=== PATIENT | male | born 1965 | race Caucasian/White ===

== ENCOUNTER 2017-11-12 10:46 | Emergency (ER) | payer SELFPAY ==
[~2017-11-12] VITALS: Ht 152.4 cm; Wt 61.4 kg
[2017-11-12 10:47] VITALS: BP 137/81; PULSE 96; RESP 14; TEMP 96.6; O2SAT 96
--- NOTE | 2017-11-12 12:02 | PD ---
HPI Chief Complaint: Skin Problem Time Seen by Provider: 11:56 Travel History International Travel<30 days: Yes Contact w/Intl Traveler<30days: Yes Name of Country Traveled to: [place] Traveled to known affect area: No History of Present Illness HPI 52-year-old male presents to emergency Department with complaint of sores to the ventral aspect of bilateral hands since Sunday. Says he went to [facility] and they told him to "fuck off" and didn't do anything for him. He denies taking any antibiotics. Reports being up-to-date on tetanus vaccination. Unknown bug bites. Denies fever, vomiting. Denies paresthesias or loss of sensation to the affected extremity. Reports decreased range of motion of the right second and third fingers at the MCP joint. Has not taken any medication or tried any treatments to alleviate his symptoms. Symptoms are moderate in severity. No known allergies. Does not have an established primary care provider. Has no other medical complaints. No other modifying factors or associated signs and symptoms. PFSH Social History Tobacco Use: No Allergies-Medications (Allergen,Severity, Reaction): Coded Allergies: No Known Allergies (Unverified , 11/12/17) Reported Meds & Prescriptions Reported Meds & Active Scripts Active Clindamycin (Clindamycin HCl) 150 Mg Cap 450 Mg PO Q6H 10 Days Ibuprofen 800 Mg Tab 800 Mg PO Q6HR PRN Review of Systems Except as stated in HPI: all other systems reviewed are Neg Physical Exam Narrative GENERAL: Well-nourished, well-developed male patient, in no acute distress; afebrile, nontoxic-appearing; nonpleasant and demanding SKIN: 2 lesions noted to the right hand over the first and second metacarpal region near the MCP joints; they appear like infected blister-like lesions; lesions noted to the ventral aspect of the left hand, two small and 1 with some surrounding erythema. No lymphangitis noted bilaterally. Right second and third fingers with limited range of motion at the MCP joints; fingers with edema and with minimal erythema; with warmth to touch; sensory intact. Full range of motion at all finger joints of the left hand. HEAD: Atraumatic. Normocephalic. EYES: Pupils equal and round. No scleral icterus. No injection or drainage. ENT: Mucosa pink and moist. Airway patent. NECK: Trachea midline. CARDIOVASCULAR: Regular rate. RESPIRATORY: No accessory muscle use. GASTROINTESTINAL: Flat. MUSCULOSKELETAL: No obvious deformities. No clubbing. No cyanosis. No edema. NEUROLOGICAL: Awake and alert. Oriented 3. No obvious cranial nerve deficits. Motor grossly within normal limits. Normal speech. PSYCHIATRIC: Appropriate mood and affect; insight and judgment normal. Data Data Last Documented VS Vital Signs Date Time Temp Pulse Resp B/P (MAP) Pulse Ox O2 Delivery O2 Flow Rate FiO2 11/12/17 13:30 16 11/12/17 13:20 11/12/17 10:47 96.6 96 96 Orders Orders Wound Culture And Gram Stain (11/12/17 12:02) Wound Care (11/12/17 12:02) Ibuprofen (Motrin) (11/12/17 12:15) Hand, Complete (Cki4nin) (11/12/17 12:09) Clindamycin Inj (Cleocin Inj) (11/12/17 12:15) Ed Discharge Order (11/12/17 13:14) MDM Medical Decision Making Medical Screen Exam Complete: Yes Emergency Medical Condition: Yes Medical Record Reviewed: Yes Differential Diagnosis Tenosynovitis, septic joint, osteomyelitis, cellulitis, abscess, infected bug bites Narrative Course 52-year-old male with multiple lesions of ventral aspect of bilateral hands. Patient is afebrile and nontoxic-appearing. Denies fever, vomiting. Reports being up-to-date on his tetanus vaccination. No previous antibiotic treatment. Wound culture pending. Right hand x-ray ordered to rule out osteomyelitis. Wound care and ibuprofen ordered. Clindamycin 600 mg IM ordered. 1310: Right hand x-ray concludes: Hand X-Ray 11/12/17 1209 Signed Impressions: Service Date/Time: Sunday, November 12, 2017 12:35 - CONCLUSION: Soft tissue swelling, negative for fracture. Quincy Dhillon MD FACR X-ray findings discussed with the patient. I discussed the patient with Dr. Pérez, my attending physician, and she agrees with my plan of care and recommends outpatient followup. Instructed patient to follow up with hand surgeon. Instructed patient to return to the emergency department in 48 hours for wound recheck, if not earlier if symptoms worsen. Clindamycin, ibuprofen prescribed for home. Instructed patient to follow up with primary care provider. Patient verbalizes understanding and agreement with treatment plan. Patient is medically cleared and stable for discharge. Discussed reasons to return to the emergency department. Patient agrees with treatment plan. The patients vital signs are stable and the patient is stable for outpatient follow- up and treatment. Patient discharged home, stable and in no acute distress. Diagnosis Primary Impression: Skin lesion of hand Referrals: Rebecca Bradley MD [facility] Hand Surgeon Primary Care Physician Patient Instructions: Abscess (ED), Abscess Follow-up (ED), General Instructions Additional Instructions: Complete full course of antibiotics; clindamycin is approximately $20 at [facility]; there is a [facility] pharmacy in [facility] Warm compresses to the affected area Keep area clean and dry Ibuprofen or Tylenol as directed and as needed for pain and inflammation Ltdi-tpo-tzhixky antibiotic ointment as directed and as needed for wound care Follow-up with primary care provider 1-2 days Follow-up with hand surgeon in 1-2 days Return to the emergency department in 48 hours for wound recheck Return to emergency department immediately with worsening of symptoms Med/Other Pt SpecificInfo: Prescription(s) given Scripts Clindamycin (Clindamycin) 150 Mg Cap 450 MG PO Q6H for Infection for 10 Days, #120 CAP 0 Refills Prov: Brenda Candelaria 11/12/17 Ibuprofen (Ibuprofen) 800 Mg Tab 800 MG PO Q6HR Y for PAIN, #20 TAB 0 Refills Prov: Brenda Candelaria 11/12/17 Disposition: 01 DISCHARGE HOME Condition: Stable Brenda Candelaria Nov 12, 2017 12:02
[2017-11-12] MEDS ORDERED: BACT800T5 PO (12:06)
[2017-11-12] MEDS ORDERED: IBUP1TAB7 PO (12:06)
[2017-11-12] MEDS ORDERED: CEPH-460 PO (12:06)
[2017-11-12] MEDS ORDERED: IBUPROFEN 800 MG TAB PO ONE (12:15)
[2017-11-12] MEDS ORDERED: CLINDAMYCIN PHOS 600 MG/4 ML VIAL IM ONE (12:15)
--- NOTE | 2017-11-12 12:49 | RADRPT ---
EXAM DATE/TIME: 11/12/2017 12:35 [facility] COMPARISON: No previous studies available for comparison. INDICATIONS : Right hand swelling. MEDICAL HISTORY : None. SURGICAL HISTORY : None. ENCOUNTER: Initial ACUITY: 3 days PAIN SCORE: 7/10 LOCATION: Right entire hand. FINDINGS: Generalized soft tissue swelling. Labs anatomic. Fracture is not appreciated. CONCLUSION: Soft tissue swelling, negative for fracture. Quincy Dhillon MD FACR on November 12, 2017 at 12:46 Board Certified Radiologist. This report was verified electronically.
[2017-11-12] MEDS ORDERED: CLIN150C14 PO (13:11)
[2017-11-12 13:30] VITALS: RESP 16
== END 2017-11-12 13:30 | disposition home or self-care (01) ==
LOC: NEPD 10:46
DX: L08.9 Local infection of the skin and subcutaneous tissue, unspecified (principal); B95.62 Methicillin resistant Staphylococcus aureus infection as the cause of diseases classified elsewhere; B95.0 Streptococcus, group A, as the cause of diseases classified elsewhere
CPT/HCPCS: 73130; 86403; 87070; 87186; 96372